=== PATIENT | male | born 1990 | race Caucasian/White ===

== ENCOUNTER 2019-09-02 15:20 | Emergency (ER) | payer SELFPAY ==
[2019-09-02 15:44] VITALS: BP 119/89; PULSE 70; TEMP 99; BMI 26.4
--- NOTE | 2019-09-02 15:44 | PDOC ---
Rapid Medical Evaluation Time Seen by Provider: 09/02/19 15:40 Medical Evaluation: Allergies Allergy/AdvReac Type Severity Reaction Status Date / Time No Known Allergies Allergy Verified 09/02/19 15:39 09/02/19 15:40 I have performed a brief in-person evaluation of this patient. The patient presents with a chief complaint of: 1 week of left testicular pain. No pain with urination, no penile discharge I have ordered the following: testicular sono The patient will proceed to the ED for further evaluation. Discharge Disposition - Diagnosis Testicular pain, left - Referrals - Patient Instructions - Post Discharge Activity
--- NOTE | 2019-09-02 17:32 | PDOC ---
History of Present Illness - General Chief Complaint: Pain Stated Complaint: SICK Time Seen by Provider: 09/02/19 15:40 - History of Present Illness Initial Comments: 09/02/19 17:22 CHIEF COMPLAINT: L testicular pain HISTORY OF PRESENT ILLNESS: 28 M with no PMH presents to ED with pain to L testicle x 1 week. Patient denies any difficulty or pain with urination, denies any penile discharge. Patient denies any swelling of the testicle but reports that it feels "inflamed." Patient reports that the pain comes and goes suddenly and he cannot think of anything that makes it better or worse. No recent travel or sick contacts. PAST MEDICAL HISTORY: Denies past medical history FAMILY HISTORY: Denies SOCIAL HISTORY: Denies tobacco, alcohol, illicit drug use. SURGICAL HISTORY: Denies ALLERGIES: No known drug allergies REVIEW OF SYSTEMS General/Constitutional: Denies fever or chills. Denies weakness, weight change. HEENT: Denies change in vision. Denies ear pain or discharge. Denies sore throat. Cardiovascular: Denies chest pain or shortness of breath. Respiratory: Denies cough, wheezing, or hemoptysis. Gastrointestinal: Denies nausea, vomiting, diarrhea or constipation. Denies rectal bleeding. Genitourinary: L testicular pain, "feels inflamed." Denies dysuria, frequency, or change in urination. Musculoskeletal: Denies joint or muscle swelling or pain. Denies neck or back pain. Skin and breasts: Denies rash or easy bruising. Neurologic: Denies headache, vertigo, loss of consciousness, or loss of sensation. Psychiatric: Denies depression or anxiety. PHYSICAL EXAM General Appearance: Well-appearing, appropriately dressed. No apparent distress , no intoxication. HEENT: EOMI, PERRLA, normal ENT inspection, normal voice, TMs normal, pharynx normal. No conjunctival pallor. No photophobia, scleral icterus. Neck: Supple. Trachea midline. No tenderness, rigidity, carotid bruit, stridor , lymphadenopathy, or thyromegaly. Respiratory/Chest: Lungs CTAB. No shortness of breath, chest tenderness, respiratory distress, accessory muscle use. No crackles, rales, rhonchi, stridor , wheezing, dullness Cardiovascular: RRR. S1, S2. No JVD, murmur, bradycardia, tachycardia. Vascular Pulses: Dorsalis-Pedis (R): 2+, Dorsalis-Pedis (L): 2+ Gastrointestinal/Abdominal: Normal bowel sounds. Abdomen soft, non-distended. No tenderness or rebound tenderness. No organomegaly, pulsatile mass, guarding , hernia, hepatomegaly, splenomegaly. Genital Exam: No masses, lesions, or discharge to penis. No swelling or erythema to testicles. Musculoskeletal/Extremities: Normal inspection. FROM of all extremities, normal capillary refill. Pelvis Stable. No CVA tenderness. No tenderness to extremities, pedal edema, swelling, erythema or deformity. Integumentary: Appropriate color, dry, warm. 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 Fully oriented, alert. Appropriate mood/affect. Motor strength 5/5. No appreciable EOM palsy, facial droop or sensory deficit. Past History - Past Medical History Allergies/Adverse Reactions: Allergies Allergy/AdvReac Type Severity Reaction Status Date / Time No Known Allergies Allergy Verified 09/02/19 15:39 Home Medications: Ambulatory Orders Ibuprofen [Motrin -] 600 mg PO QID #30 tablet 08/25/16 Doxycycline Hyclate 100 mg PO BID #20 tablet 09/02/19 COPD: No - Psycho Social/Smoking Cessation Hx Smoking History: Never smoked Have you smoked in the past 12 months: No Information on smoking cessation initiated: No Hx Alcohol Use: No Drug/Substance Use Hx: No Substance Use Type: None *Physical Exam - Vital Signs Last Vital Signs Temp Pulse Resp BP Pulse Ox 99 F 70 20 119/89 98 09/02/19 15:41 09/02/19 15:41 09/02/19 15:41 09/02/19 15:41 09/02/19 15:41 Medical Decision Making - Medical Decision Making 09/02/19 17:32 28 M with no PMH presents to ED with pain to L testicle x 1 week. -testicular US US shows possible mildly increased vascularity to L epididymal head. Likely acute epididymitis. -Ceftriaxone IM -doxycycline x 10 days Discharge - Discharge Information Problems reviewed: Yes Clinical Impression/Diagnosis: Epididymitis Condition: Stable Disposition: HOME - Admission No - Additional Discharge Information Prescriptions: Doxycycline Hyclate 100 mg PO BID #20 tablet - Follow up/Referral - Patient Discharge Instructions Patient Printed Discharge Instructions: DI for Epididymitis Print Language: FAROESE - Post Discharge Activity
[2019-09-02 17:57] LABS: PH,URINE 5.5 (5.0-8.0); URINE APPEARANCE CLEAR; URINE BILIRUBIN NEGATIVE (NEGATIVE); URINE COLOR YELLOW; URINE GLUCOSE (UA) NEGATIVE (NEGATIVE); URINE KETONE NEGATIVE (NEGATIVE); URINE LEUK ESTERASE NEGATIVE (NEGATIVE); URINE NITRITE NEGATIVE (NEGATIVE); URINE PROTEIN NEGATIVE (NEGATIVE); URINE UROBILINOGEN 0.2 mg/dL (0.2-1.0)
[2019-09-02] MEDS ORDERED: DOXYCYCLINE HYCLATE 100 MG CAPSULE PO ONE ×2 (18:15→18:23)
== END 2019-09-02 18:57 | disposition home or self-care (01) ==
LOC: JER 15:20
DX: N45.1 Epididymitis (principal)
CPT/HCPCS: 36415; 76870-TC; 81003; 87086; 87491; 87591; 99282-25